=== PATIENT | female | born 1995 | race African-American/Black ===

== ENCOUNTER 2025-04-18 16:03 | Emergency (ER) | payer MEDICAID, SELFPAY ==
[2025-04-18 16:19] VITALS: BP 103/63; PULSE 71; RESP 16; TEMP 37; O2SAT 99
[2025-04-18 16:39] LABS: EDSTREPNEGPOS1 Positive (Negative)
--- NOTE | 2025-04-18 16:47 | ED_ITS ---
HPI - General Adult General Chief complaint: Upper Respiratory Infection Stated complaint: Sore Throat Source: patient Mode of arrival: ambulatory Limitations: no limitations History of Present Illness HPI narrative: patient is a 29-year-old female presenting with complaint of sore throat. Sore throat began 9 days ago. She does report rhinorrhea, cough That have improved. No known exposure to COVID, flu, strep, pneumonia. No treatment initiated prior to arrival. No additional complaints. Related Data Allergies Allergy/AdvReac Type Severity Reaction Status Date / Time No Known Allergies Allergy Verified 04/18/25 16:56 Review of Systems Review of Systems: CONSTITUTIONAL: Denies body aches, fever, chills, or sweats. EYES: Denies visual changes, redness, or discharge. ENT: reports sore throat Denies rhinorrhea, congestion, or otalgia. CARDIOVASCULAR: Denies chest pain, palpitations, or edema. RESPIRATORY: Denies dyspnea. GASTROINTESTINAL: Denies abdominal pain, nausea, vomiting, or diarrhea. GENITOURINARY: Denies dysuria or hematuria. SKIN: Denies rash, itching, or wounds. MUSCULOSKELETAL: Denies back pain, joint pain, or myalgia. NEUROLOGIC: Denies headache, numbness, tingling, or weakness. PSYCH: Denies depression or anxiety. All systems reviewed & are unremarkable except as noted in HPI and below Exam Narrative: GENERAL: Well-appearing, well-nourished, and in no acute distress. HEAD: Normocephalic, atraumatic. EYES: EOMI. No redness or drainage. Conjunctivae normal. ENT: Mucous membranes pink and moist. NECK: Normal AROM. Supple. No lymphadenopathy. CHEST: No respiratory distress. Clear to auscultation. HEART: Regular rate and rhythm. No murmur appreciated. Normal peripheral pulses. ABDOMEN: Soft, nontender, nondistended, normal active bowel sounds. MUSCULOSKELETAL: No bony tenderness. EXTREMITIES: Normal range of motion. No edema. SKIN: Warm, dry, no rash. Capillary refill normal. Normal skin turgor. NEURO: No focal deficits. Alert and oriented x3. Gait steady. PSYCH: Normal affect. No signs of depression or anxiety. HENMT: Face and sinus: normal facial exam and sinuses nontender Throat: posterior oropharynx abnormal ( moderate erythema, mild edema. Uvula is midline. There is no trismus. ) Other: Tonsils are 2+ bilaterally. No evidence of Walter angina. Course Course Emergency Course: Please be advised this is a medical document. It is intended for [id number] communication. It is written in medical language and may contain unfamiliar abbreviations or verbiage. Medical documents are intended to carry relevant information, facts as evident, and the clinical opinion of the practitioner at the time of the encounter. This dictation may have been done utilizing a voice recognition system. Attempts have been made to correct errors. However, there may be uncorrected grammatical, spelling, and recognition errors present. Level of Care: Express Care Visit Vital Signs Vital signs: Vital Signs Temperature 98.6 F 04/18/25 16:19 Pulse Rate 71 04/18/25 16:19 Respiratory Rate 16 04/18/25 16:19 Blood Pressure 103/63 04/18/25 16:19 Pulse Oximetry 99 04/18/25 16:19 Oxygen Delivery Room Air 04/18/25 16:19 Temperature 98.6 F 04/18/25 16:19 Pulse Rate 71 04/18/25 16:19 Respiratory Rate 16 04/18/25 16:19 Blood Pressure 103/63 04/18/25 16:19 Pulse Oximetry 99 04/18/25 16:19 Oxygen Delivery Room Air 04/18/25 16:19 Medical Decision Making Vital Signs Vital Signs: Vital Signs Temperature 98.6 F 04/18/25 16:19 Pulse Rate 71 04/18/25 16:19 Respiratory Rate 16 04/18/25 16:19 Blood Pressure 103/63 04/18/25 16:19 Pulse Oximetry 99 04/18/25 16:19 Oxygen Delivery Room Air 04/18/25 16:19 Temperature 98.6 F 04/18/25 16:19 Pulse Rate 71 04/18/25 16:19 Respiratory Rate 16 04/18/25 16:19 Blood Pressure 103/63 04/18/25 16:19 Pulse Oximetry 99 04/18/25 16:19 Oxygen Delivery Room Air 04/18/25 16:19 Lab Data Labs: Lab Results 04/18/25 Range/Units 16:30 POC Grp A Strep Screen Positive (Negative) Discharge Plan Discharge Clinical Impression: Strep sore throat Patient Disposition: Home Condition: Stable Instructions: Antibiotic Form Additional Instructions: Go straight to ER should your symptoms become worse or should any new symptoms develop Patient Language: Upper Sorbian Prescriptions: New cephalexin 500 mg capsule 500 mg PO Q12H Qty: 20 0RF Follow-up/Referrals: PHYSICIAN,HVAC/R SERVICE TECHNICIAN [Primary Care Provider] - 04/18/25 Time of Disposition: 16:48
== END 2025-04-18 17:11 | disposition home or self-care (01) ==
PROVIDERS: Emergency Provider Registered Nurse
DX: J02.0 Streptococcal pharyngitis (principal)
CPT/HCPCS: 87880; 99203; G0463

== ENCOUNTER 2025-08-30 15:30 | Emergency (ER) | payer MEDICAID, SELFPAY ==
[2025-08-30 15:40] VITALS: BP 117/71; PULSE 74; RESP 16; TEMP 36.6; O2SAT 100
--- NOTE | 2025-08-30 16:07 | ED_ITS ---
HPI - Nausea/Vomiting/Diarrhea General Chief complaint: Nausea/Vomiting/Diarrhea Stated complaint: nausea Time Seen by Provider: 08/30/25 16:00 30-year-old female Presents Express Care complaining of nausea, vomiting, diarrhea for 2 days. Patient reports having abdominal cramping. Patient denies any abdominal pain, fevers, body aches, chills. Patient last vomited approximately this morning approximately 8. Patient has been able to keep fluids down since vomiting. Patient reports brown watery diarrhea. Patient says the diarrhea has improved she started to have formed stools. Patient denies any blood or mucus in stools. Patient has not tried any [id number] for relief. Patient denies recent travel outside the country. Patient says she believes she ate something bad 2 days ago for her birthday. Source: patient and RN notes reviewed Mode of arrival: ambulatory Limitations: no limitations Related Data Allergies Allergy/AdvReac Type Severity Reaction Status Date / Time No Known Allergies Allergy Verified 08/30/25 15:37 Review of Systems Review of Systems: CONSTITUTIONAL: Denies fever, chills, body aches, or sweats. EYES: Denies visual changes, redness, or discharge. ENT: Denies rhinorrhea, congestion, sore throat, or otalgia. CARDIOVASCULAR: Denies chest pain, palpitations, or edema. RESPIRATORY: Denies cough or dyspnea. GASTROINTESTINAL: Denies abdominal pain, bloody stools, hematochezia. Positive for nausea, vomiting, or diarrhea. GENITOURINARY: Denies dysuria or hematuria. SKIN: Denies rash or itching. MUSCULOSKELETAL: Denies back pain, joint pain, or myalgia. NEUROLOGIC: Denies headache, numbness, or weakness. PSYCHIATRIC: Denies anxiety or depression. All other systems reviewed are negative, except as documented in HPI. Exam Narrative: GENERAL: This is a well-nourished, well-developed adult, in no apparent distress. They are non ill-appearing, nontoxic appearing. HEAD: normocephalic, atraumatic. EYES: Sclera clear/white. Vision is grossly intact. Conjunctiva normal bilaterally. Extraocular movements intact. EARS: External ears normal, Hearing grossly intact. NOSE: External nose normal THROAT: Mucous membranes moist NECK: Normal range of motion CARDIOVASCULAR: Regular rate and rhythm RESPIRATORY: Respiratory rate normal, respiratory effort nonlabored, no respiratory distress GASTROINTESTINAL: Abdomen soft, flat, generalized tenderness, nondistended. B owel sounds are active. No hepato-splenomegaly, or palpable masses. No guarding or rigidity. No rebound tenderness. SKIN: warm, Dry, intact with no suspicious lesions or rash, good texture and turgor. NEURO: awake, alert, and oriented to person, place and time. There were no obvious focal neurologic abnormalities. EXTREMITIES: No joint tenderness, effusion, or edema noted. BACK: Nontender without deformity. No CVA tenderness. Course Course Emergency Course: Portions of this record may have been created with voice recognition software Level of Care: Express Care Visit Vital Signs Vital signs: Vital Signs Temperature 97.9 F 08/30/25 15:40 Pulse Rate 74 08/30/25 15:40 Respiratory Rate 16 08/30/25 15:40 Blood Pressure 117/71 08/30/25 15:40 Pulse Oximetry 100 08/30/25 15:40 Oxygen Delivery Room Air 08/30/25 15:40 Temperature 97.9 F 08/30/25 15:40 Pulse Rate 74 08/30/25 15:40 Respiratory Rate 16 08/30/25 15:40 Blood Pressure 117/71 08/30/25 15:40 Pulse Oximetry 100 08/30/25 15:40 Oxygen Delivery Room Air 08/30/25 15:40 MDM - Nausea/Vomiting/Diarrhea MDM Narrative Medical decision making narrative: Symptoms likely from a viral gastroenteritis. Will prescribe Zofran as needed for nausea and vomiting. Patient does not appear clinically dehydrated. Patient has been able to keep fluids down. Discussed physical exam findings. Advised supportive measures and signs/symptoms to go to the ER. Pt is appropriate for outpt treatment and f/u. Differential Diagnosis Differential diagnosis: Likely traveler's diarrhea, food poisoning and gastroenteritis Discharge Plan Discharge Clinical Impression: Gastroenteritis Patient Disposition: Home Condition: Stable Instructions: Gastroenteritis (ED) Additional Instructions: It is likely have a viral gastroenteritis. This is normally a self-limiting condition or resolve within 24-72 hours. However sometimes symptoms may linger on up to 7 days. It is recommended not to take anything for the diarrhea and allow the diarrhea to run its course. If the diarrhea persist and you feeling better, you may take Pepto-Bismol as needed to help control the diarrhea. Recommend hydration with plenty of fluids electrolyte supplementation such as Pedialyte. Start with a bland diet and progress back to normal diet as tolerated. This is includes rice, oats, cereals, toast, apples, etc. Follow-up PCP in 3-5 days. You may take Zofran as needed for nausea or vomiting. If you are unable to keep anything down, you develops severe abdominal pain, fevers, uncontrollable diarrhea, concerns of dehydration, or any other concerns please go to the ER immediately. Patient Language: Georgian Prescriptions: New ondansetron 4 mg tablet,disintegrating 4 mg PO Q8H PRN (Reason: nausea and vomiting) Qty: 12 0RF Follow-up/Referrals: Sybil,MD Arelis [Primary Care Provider, Unknown] Stand Alone Forms: Work/School Release IP Time of Disposition: 16:06
== END 2025-08-30 16:10 | disposition home or self-care (01) ==
PROVIDERS: PCP Obstetrics & Gynecology
DX: K52.9 Noninfective gastroenteritis and colitis, unspecified (principal)
CPT/HCPCS: 99213; G0463

== ENCOUNTER 2025-10-16 18:58 | Emergency (ER) | payer OTHER, SELFPAY ==
--- NOTE | 2025-10-16 19:01 | ED.URI ---
HPI - URI/Sore Throat General Chief Complaint: Upper Respiratory Infection Stated Complaint: Cough,Chills,Body aches Time Seen by Provider: 10/16/25 19:01 Source: patient Mode of arrival: ambulatory Limitations: no limitations History of Present Illness HPI Narrative: Jermain is a 30-year-old female patient presenting to the clinic today with complaints of cough, sore throat, chills, body aches, and fatigue times 3-4 days. She reports last 2 days she has been very fatigued in lying in bed. Denies any chest pain or shortness of breath. Has had exposure to COVID. Has been taking DayQuil/NyQuil/warm tea with honey and orange juice Related Data Allergies Allergy/AdvReac Type Severity Reaction Status Date / Time No Known Allergies Allergy Verified 10/16/25 19:01 Review of Systems Review of Systems: Pertinent positives per HPI. Patient denies any fever, rash, headache, visual changes, dizziness, shortness of breath, chest pain, palpitations, nausea, vomiting, diarrhea, constipation, abdominal pain, or any urinary issues. PMFSH Comments At the time of my signature, I reviewed and agree with the nursing past medical, surgical, social, and family history. There is no relevant family history pertinent to the patient complaint. Exam Narrative: General: Well-developed, well nourished, in no apparent distress Head: Normocephalic, atraumatic Eyes: Pupils equally round and reactive to light bilaterally, EOM intact, sclera and conjunctive clear, no discharge, lids normal Ears: TMs intact and clear, ear canals cerumenious, no drainage, grossly hearing normal. Nose: Nares patent, clear nasal discharge, mild inflammation, no sinus tenderness. Mouth: Oral pharynx red with bilateral tonsillar enlargement without lesions or masses, good dentition, MMM. Neck: Supple, trachea midline, no enlargement of anterior or posterior cervical nodes, no thyroid masses or goiter palpable. Cardio: Regular rate and rhythm, s1 and s2 normal, no murmur appreciated. Resp: Clear to auscultation bilaterally, no rhonchi, rales, wheezing or rubs Course Course Level of Care: Express Care Visit Vital Signs Vital signs: Vital Signs Temperature 36.8 C 10/16/25 19:14 Pulse Rate 71 10/16/25 19:14 Respiratory Rate 18 10/16/25 19:14 Blood Pressure 108/81 10/16/25 19:14 Pulse Oximetry 100 10/16/25 19:14 Oxygen Delivery Room Air 10/16/25 19:14 Temperature 36.8 C 10/16/25 19:14 Pulse Rate 71 10/16/25 19:14 Respiratory Rate 18 10/16/25 19:14 Blood Pressure 108/81 10/16/25 19:14 Pulse Oximetry 100 10/16/25 19:14 Oxygen Delivery Room Air 10/16/25 19:14 MDM MDM Narrative Medical decision making narrative: At the time of visit patient is resting comfortably on the exam table. Patient appears to be nontoxic. Complaints of cough, sore throat, chills, body aches, and fatigue times 3-4 days. She reports last 2 days she has been very fatigued in lying in bed. Denies any chest pain or shortness of breath. Has had exposure to COVID. Has been taking DayQuil/NyQuil/warm tea with honey and orange juice. On exam patient has bilateral TMs intact and clear, ear canals ceruminous, clear nasal drainage, mild anterior turbinate inflammation, oral pharynx red with bilateral tonsillar enlargement, no cervical lymphadenopathy, lung sounds clear, heart rates regular rate and rhythm. COVID, flu, and strep test were performed. Labs: COVID testing was positive. Flu and strep test were negative. Plan: Supportive measures were discussed with the patient and they voiced understanding discharge instructions and agrees to treatment plan. Return precautions reviewed Differential Diagnosis Differential Diagnosis: Differential diagnostic considerations for upper respiratory infection include upper respiratory infection, croup, otitis media, sinusitis, viral infection, bronchitis, influenza, pharyngitis, strep, uvulitis. Discharge Plan Discharge Clinical Impression: COVID-19 Patient Disposition: Home Condition: Stable Instructions: Antibiotic Form, How to Recover from COVID-19 at Home (ED) Additional Instructions: COVID testing is positive in the clinic today. Influenza and strep test were negative. We will send strep for culture if this comes back positive we will contact him place you on antibiotics at that time. May continue taking DayQuil/NyQuil for cold/flu symptoms Increase fluids and stay well hydrated May take Tylenol or motrin as directed on bottle for pain/fever May use Flonase 1 spray in each nare daily May take OTC antihistamines such as Zyrtec or Claritin daily as directed on bottle May apply Vicks vapor rub to chest to open sinuses Sinus rinses for congestion Cepacol spray, cough drops, throat lozenges, warm tea with honey/lemon, gargle salt water to soothe throat BRAT diet for diarrhea Clear liquids x 24 hours then advance as tolerated for nausea/vomiting Go to the ED if you develop a worsening in your condition- high fever not controlled by Tylenol or Motrin, dehydration, weakness, lethargy, shortness of breath, or chest pain. Follow up with your PCP in 3-5 days if symptoms persist. Patient Language: Citizen Of [place] Follow-up/Referrals: Sybil,MD Arelis [Primary Care Provider, Unknown] Stand Alone Forms: Work/School Release IP Time of Disposition: 19:19 Quality NIHSS Nursing Documentation ED NIHSS nursing documentation: reviewed/agree
[2025-10-16 19:14] VITALS: BP 108/81; PULSE 71; RESP 18; TEMP 36.8; O2SAT 100
[2025-10-16 19:23] LABS: EDCOVIDSCREEN Positive (Negative); EDINFLUASCREEN Negative (Negative); EDINFLUBSCREEN Negative (Negative); EDSTREPNEGPOS1 Negative (Negative)
== END 2025-10-16 19:27 | disposition home or self-care (01) ==
PROVIDERS: Emergency Provider Nurse Practitioner Family; PCP Obstetrics & Gynecology
DX: U07.1 COVID-19 (principal)
CPT/HCPCS: 87081; 87426; 87804; 87880; 99213; G0463